=== PATIENT | female | born 1980 | race American Indian/Alaskan Native ===

== ENCOUNTER 2020-10-29 17:07 | Emergency (ER) | payer SELFPAY ==
[2020-10-29 17:15] VITALS: BP 124/74
[2020-10-29] MEDS ORDERED: SODIUM CHLORIDE 0.9% 1000 ML 1,000 ML IV ONE (17:32)
[2020-10-29] MEDS ORDERED: TETRACAINE 0.5% OPHTH SOLN 4ML OU PRN (17:32)
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
== END 2020-10-29 20:40 | disposition home or self-care (01) ==
LOC: ED 17:07
DX: T54.3X1A Toxic effect of corrosive alkalis and alkali-like substances, accidental (unintentional), initial encounter (principal); Z91.018 Allergy to other foods; Z79.899 Other long term (current) drug therapy; Y92.89 Other specified places as the place of occurrence of the external cause
CPT/HCPCS: 99283; J7030